=== PATIENT | male | born 1970 | race Caucasian/White ===

== ENCOUNTER 2020-05-14 14:48 | Inpatient (IN) | payer BC, OTHER ==
[~2020-05-14] VITALS: Ht 175.3 cm; Wt 91.3 kg
[~2020-05-14 14:48] MED LIST: heparin 10,000 units/1 ML INJ ONE; heparin, porcine-25,000 units/D5-250ml premix IV ONE
[2020-05-14 15:41] LABS: BASOPHILS # (AUTO) 0.1 X10'3 (0-0.2); BASOPHILS % (AUTO) 0.9 % (0-1); EOSINOPHILS # (AUTO) 0.1 X10'3 (0-0.9); EOSINOPHILS % (AUTO) 1.7 % (0-6); HEMATOCRIT 47.9 % (42.0-52.0); HEMOGLOBIN 16.3 g/dl (14.0-17.9); LYMPHOCYTES # (AUTO) 1.7 X10'3 (1.1-4.8); LYMPHOCYTES % (AUTO) 27.1 % (21-51); MEAN CORPUSCULAR HEMOGLOBIN 29.9 PG (27.0-31.0); MEAN CORPUSCULAR HGB CONC 34.1 g/dL (33.0-36.5); MEAN CORPUSCULAR VOLUME 87.6 FL (78-98); MEAN PLATELET VOLUME 9.4 FL (7.4-10.4); MONOCYTES # (AUTO) 0.6 X10'3 (0-0.9); NEUTROPHILS # (AUTO) 3.7 X10'3 (1.8-7.7); NEUTROPHILS % (AUTO) 60.3 % (42-75); PLATELET COUNT 204 X10'3 (140-440); RED BLOOD COUNT 5.46 X10'6 (4.70-6.10); RED CELL DISTRIBUTION WIDTH 13.8 % (11.5-14.5); WHITE BLOOD COUNT 6.1 X10'3 (4.5-11.0)
[2020-05-14] MEDS ORDERED: aspirin 81mg tab.chew PO ONE (15:50)
[2020-05-14] MEDS ORDERED: nitroGLYCERIN 0.4mg SUBLingual tab SL PRN (15:50)
[2020-05-14] MEDS ORDERED: ondansetron/PF 4mg/2ml inj IV ONE (15:50)
[2020-05-14] MEDS ORDERED: metoprolol tartrate 1mg/ml inj IV ONE (15:55)
[2020-05-14 16:04] LABS: ALANINE AMINOTRANSFERASE 41 U/L (12-78); ALBUMIN 4.2 G/DL (3.4-5.0); ALBUMIN/GLOBULIN RATIO 1.1 (1.1-1.5); ALKALINE PHOSPHATASE 78 IU/L (46-116); ANION GAP 9 (8-16); ASPARTATE AMINO TRANSFERASE 21 U/L (10-37); BILIRUBIN,TOTAL 0.4 MG/DL (0.1-1.0); BLOOD UREA NITROGEN 18 MG/DL (7-18); BUN/CREATININE RATIO 14.1 (5.4-32.0); CALCIUM 9.5 MG/DL (8.5-10.1); CHLORIDE 107 MMOL/L (99-107); CREATININE 1.28 MG/DL (0.60-1.10); GLUCOSE 120 MG/DL (70-104); POTASSIUM 4.2 MMOL/L (3.5-5.1); SODIUM 143 MMOL/L (135-145); TOTAL CARBON DIOXIDE 26.6 MMOL/L (24-32); TOTAL PROTEIN 7.9 G/DL (6.4-8.2); eGFR 59 ML/MIN
[2020-05-14] MEDS ORDERED: tirofiban 5mg in NS 100mL 100 ML IV ONE (16:14)
[2020-05-14] MEDS ORDERED: iohexol 350MG/ML 100ml bottle IV ONE ×2 (16:15→17:55)
[2020-05-14] MEDS ORDERED: heparin 1,000unit/ml 10ml vial 10 ML ONE (16:15)
[2020-05-14] MEDS ORDERED: iohexol 350 MG/ML 50ML vial IV ONE ×2 (16:15→17:42)
[2020-05-14] MEDS ORDERED: fentaNYL/PF 50MCG/1 ML 2ML syringe ONE (16:15)
[2020-05-14] MEDS ORDERED: LIDOcaine 1% (10mg/ml)w/preservative injection 20ml MDV ONE (16:15)
[2020-05-14] MEDS ORDERED: midazolam 2 mg/2 ml injection ONE (16:15)
[2020-05-14] MEDS ORDERED: heparin 25,000 UNIT/250ml bag 250 ML IV SCH (16:25)
[2020-05-14] MEDS ORDERED: heparin 10,000 units/1 ML INJ IV ONE (16:25)
[2020-05-14 16:43] LABS: PARTIAL THROMBOPLASTIN TIME 27 SECONDS (22-32)
[2020-05-14] MEDS ORDERED: NO HOME MEDS (16:54)
[2020-05-14 16:58] LABS: ETHANOL < 0.010 GM/DL (0.0-0.010)
[2020-05-14] MEDS ORDERED: diphenhydrAMINE 50 mg/ml inj ONE (17:22)
[2020-05-14] MEDS ORDERED: DOPamine 400mg/D5W 250ml 250 ML IV ONE (17:50)
--- NOTE | 2020-05-14 18:10 | NUR ---
Patient in room . I have received report from COLBY Samano in the [employer] and had the opportunity to ask questions and assume patient care.
[2020-05-14] MEDS ORDERED: clopidogrel 300mg tablet ONE (18:20)
[2020-05-14 19:00] VITALS: BP 93/60
--- NOTE | 2020-05-14 19:10 | NUR ---
arrived from computer lab para professional on hospital bed, patient is A&O x3, MEJIA and is appropriate
[2020-05-14] MEDS: tirofiban 5mg in NS 100mL 100 ML IV SCH (19:46)
[2020-05-14 20:00] VITALS: BP_SYST 126; BP_SYST 92; BP_DIAS 66; BP_DIAS 74
[2020-05-14] MEDS ORDERED: proCHLORperazine 10 MG/2 ml inj IV PRN (20:15)
[2020-05-14] MEDS ORDERED: cyclobenzaprine 10mg tablet PO PRN (20:15)
[2020-05-14] MEDS ORDERED: acetaminophen 325mg tablet PO PRN ×3 (20:15→20:40)
[2020-05-14] MEDS ORDERED: magnesium hydroxide 30ml (MOM) UD suspension PO PRN ×2 (20:15→20:40)
[2020-05-14] MEDS ORDERED: morphine 10mg/ml inj. IV PRN (20:15)
[2020-05-14] MEDS ORDERED: OXAZEpam 15mg capsule PO PRN (20:15)
[2020-05-14] MEDS ORDERED: aspirin 81mg tablet.DR PO ONE (20:20)
[2020-05-14] MEDS ORDERED: morphine 4 MG/ML inj SYRINge IV PRN ×2 (20:20→20:40)
[2020-05-14] MEDS ORDERED: HYDROcodone/acetaminophen 10/325mg tab PO PRN ×2 (20:25)
[2020-05-14] MEDS ORDERED: potassium Cl 40MEQ/1/2NS 520ml 520 ML IV PRN ×2 (20:40)
[2020-05-14] MEDS ORDERED: magnesium 2GM in 50ml NS 50 ML IV PRN (20:40)
[2020-05-14] MEDS ORDERED: magnesium 4gm in 100ml NS 100 ML IV PRN (20:40)
[2020-05-14] MEDS ORDERED: potassium Cl 20 mEq SR tablet PO PRN ×2 (20:40)
[2020-05-14] MEDS ORDERED: magnesium Cl slow-release 64mg tablet PO PRN (20:40)
[2020-05-14] MEDS: K, MAG and/or Phos replacement - Verify level? MC SCH (20:40)
[2020-05-14] MEDS ORDERED: ondansetron/PF 4mg/2ml inj IV PRN (20:40)
[2020-05-14] MEDS: normal saline 1000ml 1,000 ML IV SCH (20:53)
[2020-05-14 21:00] VITALS: BP 119/68
[2020-05-14 22:00] VITALS: BP 118/68
[2020-05-14] MEDS: morphine 2 MG/ML inj. syringe IV PRN (22:40)
[2020-05-14 23:00] VITALS: BP 106/60
[2020-05-15] VITALS (24 sets, daily range): BP systolic 89–130; BP diastolic 60–85
[2020-05-15] MEDS: tirofiban 5mg in NS 100mL 100 ML IV SCH (00:18)
[2020-05-15 03:08] LABS: BASOPHILS # (AUTO) 0.1 X10'3 (0-0.2); BASOPHILS % (AUTO) 0.6 % (0-1); EOSINOPHILS # (AUTO) 0.1 X10'3 (0-0.9); EOSINOPHILS % (AUTO) 0.7 % (0-6); HEMATOCRIT 41.8 % (42.0-52.0); HEMOGLOBIN 14.3 g/dl (14.0-17.9); LYMPHOCYTES # (AUTO) 1.5 X10'3 (1.1-4.8); LYMPHOCYTES % (AUTO) 12.5 % (21-51); MEAN CORPUSCULAR HGB CONC 34.3 g/dL (33.0-36.5); MEAN CORPUSCULAR VOLUME 87.7 FL (78-98); MEAN PLATELET VOLUME 9.8 FL (7.4-10.4); MONOCYTES # (AUTO) 0.8 X10'3 (0-0.9); MONOCYTES % (AUTO) 6.3 % (2-12); NEUTROPHILS # (AUTO) 9.7 X10'3 (1.8-7.7); NEUTROPHILS % (AUTO) 79.9 % (42-75); PLATELET COUNT 189 X10'3 (140-440); RED BLOOD COUNT 4.77 X10'6 (4.70-6.10); RED CELL DISTRIBUTION WIDTH 14.2 % (11.5-14.5); WHITE BLOOD COUNT 12.1 X10'3 (4.5-11.0)
[2020-05-15 03:15] LABS: ALANINE AMINOTRANSFERASE 38 U/L (12-78); ALBUMIN 3.4 G/DL (3.4-5.0); ALBUMIN/GLOBULIN RATIO 1.1 (1.1-1.5); ALKALINE PHOSPHATASE 59 IU/L (46-116); ANION GAP 12 (8-16); ASPARTATE AMINO TRANSFERASE 54 U/L (10-37); BILIRUBIN,TOTAL 0.5 MG/DL (0.1-1.0); BLOOD UREA NITROGEN 17 MG/DL (7-18); BUN/CREATININE RATIO 14.8 (5.4-32.0); CALCIUM 8.8 MG/DL (8.5-10.1); CHLORIDE 107 MMOL/L (99-107); CREATININE 1.15 MG/DL (0.60-1.10); GLUCOSE 137 MG/DL (70-104); MAGNESIUM 2.1 MG/DL (1.5-2.4); POTASSIUM 4.1 MMOL/L (3.5-5.1); SODIUM 141 MMOL/L (135-145); TOTAL CARBON DIOXIDE 22.1 MMOL/L (24-32); TOTAL PROTEIN 6.4 G/DL (6.4-8.2); eGFR 67 ML/MIN
[2020-05-15] MEDS: morphine 2 MG/ML inj. syringe IV PRN ×3 (05:09→18:31)
--- NOTE | 2020-05-15 06:20 | NUR ---
Problems reprioritized. Patient report given, questions answered & plan of care reviewed with COLBY Garcia.
--- NOTE | 2020-05-15 06:20 | NUR ---
Patient in room ICU 2044. I have received report from Melisa BOWMAN and had the opportunity to ask questions and assume patient care.
--- NOTE | 2020-05-15 06:30 | NUR ---
Night nurse Melisa and day RN in patients room. A/O x3, VSS, excessive bleeding from right groin where sheath was placed. An issue that has been happening all night. Upon entering patient's room, Night RN turned off Heparin and Agg to help relieve bleeding quantities. Charge Nurse Jenelle was contacted and help pressure to sight. 3inch tenderness noted and hematoma. Dr. Olivas was paged in regards to obtain orders for fem stop. Jenelle applied Fem stop, assessed pedal pulses. Dr. Olivas advised to call cath l;ab at 0800, and if BP and Heart rate drops to restart pt on dopamine drip from past order. Patient is able to tolerate fem stop and will use call light in if needed. Will continue to monitor.
[2020-05-15] MEDS: normal saline 1000ml 1,000 ML IV SCH ×2 (07:09→19:10)
[2020-05-15] MEDS: K, MAG and/or Phos replacement - Verify level? MC SCH (08:00)
--- NOTE | 2020-05-15 08:20 | NUR ---
Called [employer] [employer] to notify them at patients position. Fem stop still applied, and is holding. [facility] [employer] will be seeing patient as soon as staff are available. Will continue to monitor.
[2020-05-15] MEDS: aspirin 81mg tablet.DR PO SCH (08:35)
[2020-05-15] MEDS: docusate sod 100mg capsule PO SCH ×2 (08:35→18:30)
[2020-05-15] MEDS: clopidogrel 75mg tablet PO SCH (08:35)
[2020-05-15] MEDS: atorvastatin 20mg tablet PO SCH (08:35)
--- NOTE | 2020-05-15 11:40 | NUR ---
Patient had sheath removed and sealed per an angio seal. Patient tolerated well. Minimal bleeding noted. Puncture wound covered with gauze and Tegaderm to be monitored. Per MD patient needs to be laying flat 6-8hrs with monitoring site. Will continue to monitor.
--- NOTE | 2020-05-15 18:21 | NUR ---
Problems reprioritized. Patient report given, questions answered & plan of care reviewed with Domingo BOWMAN.
--- NOTE | 2020-05-15 18:25 | NUR ---
Patient in room ICU 2044. I have received report from Radha LYNCH, and had the opportunity to ask questions and assume patient care.
--- NOTE | 2020-05-15 20:29 | NUR ---
Problems reprioritized. Patient report given, questions answered & plan of care reviewed with Milad.
[2020-05-16] VITALS (14 sets, daily range): BP systolic 91–134; BP diastolic 55–106
[2020-05-16 01:30] LABS: BASOPHILS % (AUTO) 0.7 % (0-1); EOSINOPHILS # (AUTO) 0.2 X10'3 (0-0.9); EOSINOPHILS % (AUTO) 2.3 % (0-6); HEMATOCRIT 37.2 % (42.0-52.0); HEMOGLOBIN 12.8 g/dl (14.0-17.9); LYMPHOCYTES # (AUTO) 2.1 X10'3 (1.1-4.8); LYMPHOCYTES % (AUTO) 28.2 % (21-51); MEAN CORPUSCULAR HEMOGLOBIN 30.4 PG (27.0-31.0); MEAN CORPUSCULAR HGB CONC 34.5 g/dL (33.0-36.5); MEAN PLATELET VOLUME 9.6 FL (7.4-10.4); MONOCYTES # (AUTO) 0.6 X10'3 (0-0.9); MONOCYTES % (AUTO) 8.6 % (2-12); NEUTROPHILS # (AUTO) 4.4 X10'3 (1.8-7.7); NEUTROPHILS % (AUTO) 60.2 % (42-75); PLATELET COUNT 160 X10'3 (140-440); RED BLOOD COUNT 4.23 X10'6 (4.70-6.10); RED CELL DISTRIBUTION WIDTH 13.8 % (11.5-14.5); WHITE BLOOD COUNT 7.4 X10'3 (4.5-11.0)
[2020-05-16 01:37] LABS: ALANINE AMINOTRANSFERASE 34 U/L (12-78); ALBUMIN/GLOBULIN RATIO 1.1 (1.1-1.5); ALKALINE PHOSPHATASE 61 IU/L (46-116); ANION GAP 6 (8-16); ASPARTATE AMINO TRANSFERASE 42 U/L (10-37); BILIRUBIN,TOTAL 0.3 MG/DL (0.1-1.0); BLOOD UREA NITROGEN 19 MG/DL (7-18); BUN/CREATININE RATIO 15.4 (5.4-32.0); CALCIUM 8.1 MG/DL (8.5-10.1); CHLORIDE 108 MMOL/L (99-107); CREATININE 1.23 MG/DL (0.60-1.10); GLUCOSE 118 MG/DL (70-104); MAGNESIUM 1.9 MG/DL (1.5-2.4); PHOSPHORUS 4.1 MG/DL (2.3-4.5); POTASSIUM 3.7 MMOL/L (3.5-5.1); SODIUM 141 MMOL/L (135-145); TOTAL CARBON DIOXIDE 26.7 MMOL/L (24-32); TOTAL PROTEIN 5.8 G/DL (6.4-8.2); eGFR 62 ML/MIN
--- NOTE | 2020-05-16 06:30 | NUR ---
Patient in room ICU 2044. I have received report from RN and had the opportunity to ask questions and assume patient care.
--- NOTE | 2020-05-16 06:36 | NUR ---
Problems reprioritized. Patient report given, questions answered & plan of care reviewed with Hue BOWMAN.
[2020-05-16] MEDS: docusate sod 100mg capsule PO SCH (08:00)
[2020-05-16] MEDS: K, MAG and/or Phos replacement - Verify level? MC SCH (08:00)
[2020-05-16] MEDS: atorvastatin 20mg tablet PO SCH (08:08)
[2020-05-16] MEDS: clopidogrel 75mg tablet PO SCH (08:08)
[2020-05-16] MEDS: aspirin 81mg tablet.DR PO SCH (08:08)
--- NOTE | 2020-05-16 11:30 | NUR ---
Per MD order, ambulated PT. PT ambulated 200 feet. Tolerated well, maintained VS WNL.
[2020-05-16] MEDS ORDERED: ASPI-1071 PO (12:16)
[2020-05-16] MEDS ORDERED: ATOR20TA66 PO (12:16)
[2020-05-16] MEDS ORDERED: CLOP75TA35 PO (12:16)
--- NOTE | 2020-05-16 13:42 | NUR ---
Discussed DC instructions with PT. PT understands that he is to schedule an appointment with DR Olivas when he gets home for a 1 month follow up. New prescription medications also discussed. PT acknowledges understanding what medications are, why and how he is to take them, and potential side effects. He also understands he can discuss this with his pharmacist and doctor. Furthermore, PT understands to avoid heavy lifting and all strenuous work/exercise until MD clears him. IV's removed. RT groin site assessed, CDI and soft to touch. PT will be taken out by WC with all belongings.
== END 2020-05-16 14:30 | disposition home or self-care (01) | DRG 251 ==
LOC: ER 14:48 → ICU 2S 20:14
PROVIDERS: ADMIT Internal Medicine Critical Care Medicine; ATTEND Internal Medicine
PROC: 4A023N7 Measurement of Cardiac Sampling and Pressure, Left Heart, Percutaneous Approach (ICD-10-PCS; principal; 2020-05-14)
PROC: 02703ZZ Dilation of Coronary Artery, One Artery, Percutaneous Approach (ICD-10-PCS; 2020-05-14)
PROC: B2111ZZ Fluoroscopy of Multiple Coronary Arteries using Low Osmolar Contrast (ICD-10-PCS; 2020-05-14)
PROC: B2151ZZ Fluoroscopy of Left Heart using Low Osmolar Contrast (ICD-10-PCS; 2020-05-14)
PROC: B41F1ZZ Fluoroscopy of Right Lower Extremity Arteries using Low Osmolar Contrast (ICD-10-PCS; 2020-05-14)
DX: I21.19 ST elevation (STEMI) myocardial infarction involving other coronary artery of inferior wall (principal); Z79.02 Long term (current) use of antithrombotics/antiplatelets; Z79.82 Long term (current) use of aspirin; Z20.828 Contact with and (suspected) exposure to other viral communicable diseases
CPT/HCPCS: 93458; 96374; 96375; 99291; C9606; 36415; 71045; 80053; 80320; 82948; 83735; 83880; 84100; 84484; 85025; 85347; 85610; 85730; 87635; 93005; 99152; 99153; A4620; A6258; A6449; C1725; C1751; C1760; C1769; C9803; G0378; J1200; J1265; J1644; J2001; J2250; J2270; J2405; J3010; J3246; J3490; J7030; Q9967